=== PATIENT | male | born 1960 | race African-American/Black ===

== ENCOUNTER 2023-05-24 15:04 | Inpatient (IN) | payer OTHER ==
[2023-05-24 15:28] LABS: Glucose,Whole Blood 105 mg/dL (70-110)
--- NOTE | 2023-05-24 15:30 | ED ---
General Adult HPI - General Chief complaint: Altered Mental Status Stated complaint: AMS Time Seen by Provider: 05/24/23 15:11 Source: patient, RN notes reviewed, old records reviewed - History of Present Illness Initial comments: Patient is a 62-year-old male who presents from [facility] for possible strokelike symptoms. Apparently was found sitting on the heater. Staring off into space. May have had some right-sided facial droop as well as right-sided weakness. All that seems to have resolved at this time. Patient does appear slightly confused but is alert and oriented x 4. Is moving all 4 extremities. Denies any drug or alcohol use. Denies any other acute complaints. Presents for further evaluation. Denies any trauma.Denies being on blood thinners. Denies any head trauma. - Related Data Home Medications Medication Instructions Recorded Confirmed Acetaminophen Tab [Tylenol] 650 mg PO Q4H PRN 05/24/23 05/24/23 Atorvastatin [Lipitor] 80 mg PO HS 05/24/23 05/24/23 Calcium Phos/D3/Magnesium/Zinc 1 tab PO TID PRN 05/24/23 05/24/23 [Rubraio-Qdp-Pqup-Vitamin D3] Cetirizine HCl 10 mg PO DAILY 05/24/23 05/24/23 Clopidogrel [Plavix] 75 mg PO DAILY 05/24/23 05/24/23 Ergocalciferol (Vitamin D2) 1,250 mcg PO Q30D 05/24/23 05/24/23 [Drisdol (50,000 Iu)] Hyoscyamine Sulfate [Levsin] 0.125 mg PO QID PRN 05/24/23 05/24/23 Isosorbide Mononitrate ER [Imdur] 30 mg PO DAILY 05/24/23 05/24/23 Loperamide HCl [Imodium A-D] 4 mg PO QID PRN 05/24/23 05/24/23 Losartan [Cozaar] 25 mg PO DAILY 05/24/23 05/24/23 Mag Hydrox/Aluminum Hyd/Simeth 30 ml PO Q4H PRN 05/24/23 05/24/23 [Mylanta Maximum Strength Liq] Multivitamins, Thera [Multivitamin 1 tab PO DAILY 05/24/23 05/24/23 (formulary)] Naproxen [EC-Naprosyn] 500 mg PO BID PRN 05/24/23 05/24/23 Nitroglycerin Sl Tabs [Nitrostat] 0.4 mg SUBLINGUAL Q5M PRN 05/24/23 05/24/23 SUMAtriptan succinate [Imitrex] 50 mg PO BID PRN 05/24/23 05/24/23 Thiamine [Vitamin B-1] 100 mg PO DAILY 05/24/23 05/24/23 Tigan 200mg/2ml Injection 200 mg IM Q6H PRN 05/24/23 05/24/23 buprenorphine HCL [Subutex] 4 mg SL DIRECTED 05/24/23 05/24/23 carvediloL [Coreg] 6.25 mg PO BID 05/24/23 05/24/23 cilostazoL [Pletal] 100 mg PO BID 05/24/23 05/24/23 cloNIDine HCL [Catapres] 0.1 - 0.3 mg PO DIRECTED PRN 05/24/23 05/24/23 cloNIDine HCL [Catapres] 0.1 mg PO Q4H PRN 05/24/23 05/24/23 ondansetron HCL [Zofran] 8 mg PO Q6H PRN 05/24/23 05/24/23 traZODone HCL [Desyrel] 50 - 150 mg PO HS PRN 05/24/23 05/24/23 Allergies Allergy/AdvReac Type Severity Reaction Status Date / Time No Known Allergies Allergy Verified 05/24/23 16:08 Review of Systems ROS Statement: Those systems with pertinent positive or pertinent negative responses have been documented in the HPI. Review of Systems: CONST: Denies fever EYES: Denies blurry vision ENT: Denies nasal congestion C/V: Denies Chest pain RESP: Denies shortness of breath GI: Denies abdominal pain : Denies dysuria SKIN: Denies rash. MSK: Endorses chronic back pain NEURO: Denies headache ROS Other: All systems not noted in ROS Statement are negative. General Exam - General Exam Comments Initial Comments: General: Appears in no acute distress. HEAD: Normal with no signs of head trauma. Negative Sexton sign, negative raccoon eyes. EYES: PERRLA, EOMI, conjunctiva normal, no discharge. Pupils are 2 mm and equal bilaterally. ENT: Hearing grossly intact, normal oropharynx. RESPIRATORY: Clear breath sounds bilaterally. No wheezes, rales, or rhonchi. C/V: Regular rate and rhythm. S1 and S2 auscultated, no edema, peripheral pulses 2+ and intact throughout ABD: Abd is soft, nontender, nondistended EXT: Normal range of motion, no obvious deformity. Pelvis is stable. Midline cervical spine tenderness to palpation. SKIN: No rashes or lesions observed on exposed skin. NEURO: Alert and oriented x 3-4. Cranial nerves II through XII are intact. No focal deficits. Moving all 4 extremities. Seems to be slow to sometimes respond but is redirectable. NIH right now is 0. GCS of 15. Course Vital Signs 05/24/23 05/24/23 05/24/23 15:35 15:43 17:18 Temperature 98.8 F 98.1 F Pulse Rate 77 69 Respiratory 16 12 Rate Blood Pressure 166/101 159/100 O2 Sat by Pulse 97 97 Oximetry 05/24/23 05/24/23 05/24/23 18:20 19:22 20:00 Temperature 99.3 F Pulse Rate 75 68 65 Respiratory 20 16 20 Rate Blood Pressure 139/95 147/86 147/86 O2 Sat by Pulse 97 99 98 Oximetry 05/24/23 21:00 Temperature Pulse Rate 69 Respiratory 18 Rate Blood Pressure 156/93 O2 Sat by Pulse 98 Oximetry Medical Decision Making - Medical Decision Making Was pt. sent in by a medical professional or institution (, PA, FAMILY SERVICES WORKER, urgent care, hospital, or shelter...) When possible be specific @ -No Did you speak to anyone other than the patient for history (EMS, parent, family, police, friend...)? What history was obtained from this source @ -No Did you review nursing and triage notes (agree or disagree)? Why? @ -I reviewed and agree with nursing and triage notes Were old charts reviewed (outside hosp., previous admission, EMS record, old EKG, old radiological studies, urgent care reports/EKG's, shelter records)? Report findings @ -No old charts were reviewed Differential Diagnosis (chest pain, altered mental status, abdominal pain women, abdominal pain men, vaginal bleeding, weakness, fever, dyspnea, syncope, headache, dizziness, GI bleed, back pain, seizure, CVA, palpatations, mental health, musculoskeletal)? @ -Differential Altered Mental Status: Hypoglycemia, DKA, hypercapnia, ETOH, overdose, CO poisoning, trauma, myxedema coma, HTN encephalopathy, infection, encephalitis, psychosis, intercranial hemorrhage, hepatic encephalopathy, meningitis, CVA, this is not meant to be an all-inclusive list EKG interpreted by me (3pts min.). @ -As above X-rays interpreted by me (1pt min.). @ -Chest x-ray reveals no obvious acute cardiopulmonary process. CT interpreted by me (1pt min.). @ -CT C-spine shows degenerative changes but no obvious injury. CT brain shows findings concerning per radiology for a possible developing lacunar infarct in the left basal ganglia. CT angiogram of the head and neck reveals no evidence of acute intracranial process or large vessel occlusion. U/S interpreted by me (1pt. min.). @ -None done What testing was considered but not performed or refused? (CT, X-rays, U/S, labs)? Why? @ -None What meds were considered but not given or refused? Why? @ -None Did you discuss the management of the patient with other professionals (professionals i.e. , PA, FAMILY SERVICES WORKER, lab, RT, psych nurse, high school social science teacher, breast splitter, teacher, traffic officer, caser in)? Give summary @ -Discussed with neuro interventionalists crit care Dr. Echevarria who reviewed CT imaging. Was in agreement with obtaining CT angiogram. It was in agreement wit h otherwise medical management. Agreed no thrombolytics at this time considering the patient has no focal deficits and NIH is technically 0 with complaints of generalized weakness. Would like the patient admitted for stroke workup with neurology. I discussed with on-call neurologist Dr. Archibald who was in agreement the plan. I discussed with city call Dr. Dong of [facility] [place] who accepted the admission. Was smoking cessation discussed for >3mins.? @ -No Was critical care preformed (if so, how long)? @ -Yes, 38 minutes Were there social determinants of health that impacted care today? How? (Marylu elessness, low income, unemployed, alcoholism, drug addiction, transportation, low edu. Level, literacy, decrease access to med. care, half-way, rehab)? @ -No Was there de-escalation of care discussed even if they declined (Discuss DNR or withdrawal of care, Hospice)? DNR status @ -No What co-morbidities impacted this encounter? (DM, HTN, Smoking, COPD, CAD, Cancer, CVA, ARF, Chemo, Hep., AIDS, mental health diagnosis, sleep apnea, morbid obesity)? @ -None Was patient admitted / discharged? Hospital course, mention meds given and route, prescriptions, significant lab abnormalities, going to OR and other pertinent info. @ -Patient was brought in as a possible code stroke however GCS is currently 14-15 and NIH is 0 currently. Apparently had more right-sided deficits however he is moving all 4 extremities just having a hard time following directions. We will obtain CT brain as well as altered mental status workup. Patient was in agreement this plan. Vital signs are within acceptable limits. EKG shows T wave inversions in V3 V4, V5 and slightly in V6 as well.Chest x-ray revealed no obvious acute process. Patient's laboratory studies are also unremarkable except for positive cocaine. CT brain revealed possible developing lacunar infarct. I ordered a CT angiogram. I reevaluate the patient and patient still has bilateral weakness with no focal deficits at this time. Confusion does appear to be improved. Is asking for pain medications for chronic back pain and neck pain. Seems to have bilateral upper extremity weakness, no focal weakness. I discussed results with him. We will obtain CT angiogram. As NIH is still technically 0 with no focal deficits, patient remains not a stroke activation at this time. He is not a candidate for thrombo lytics due to the very mild symptoms and risks for outweigh the benefits. I did discuss this with the on-call neuro crit assisted living care manager Dr. Echevarria. He reviewed CT brain and was in agreement the plan for no thrombolytics at this time based on the patient's presentation and findings. Did recommend CT angiogram. Did recommend follow-up with neurology. I will notify him if CT angiogram reveals any obvious large vessel occlusion. Otherwise he was in agreement with plan for medical management and evaluation by neurology here. CT angiogram revealed no obvious findings of large vessel occlusion. I discussed this with the patient. Exam remains unchanged at this time. He will be given analgesia medications at this time. He will be given aspirin. He will be admitted for neuro evaluation. I did speak with Dr. Archibald about the patient as I was discussing a another patient with him. He was in agreement the plan. I also spoke with the on-call [facility] [place] physician group, Dr. Dong who accepted the admission. Undiagnosed new problem with uncertain prognosis? @ -No Drug Therapy requiring intensive monitoring for toxicity (Heparin, Nitro, Insulin, Cardizem)? @ -No Were any procedures done? @ -No Diagnosis/symptom? @ -Rule out CVA, confusion, weakness Acute, or Chronic, or Acute on Chronic? @ -Acute Uncomplicated (without systemic symptoms) or Complicated (systemic symptoms)? @ -Complicated Side effects of treatment? @ -None Exacerbation, Progression, or Severe Exacerbation] @ -No Poses a threat to life or bodily function? @ -Yes - Lab Data Result diagrams: 05/24/23 15:29 05/24/23 15:29 Lab Results 05/24/23 05/24/23 05/24/23 Range/Units 15:11 15:13 15:26 WBC (3.8-10.6) k/uL RBC (4.30-5.90) m/uL Hgb (13.0-17.5) gm/dL Hct (39.0-53.0) % MCV (80.0-100.0) fL MCH (25.0-35.0) pg MCHC (31.0-37.0) g/dL RDW (11.5-15.5) % Plt Count (150-450) k/uL MPV Neutrophils % % Lymphocytes % % Monocytes % % Eosinophils % % Basophils % % Neutrophils # (1.3-7.7) k/uL Lymphocytes # (1.0-4.8) k/uL Monocytes # (0-1.0) k/uL Eosinophils # (0-0.7) k/uL Basophils # (0-0.2) k/uL PT (10.0-12.5) sec INR (<1.2) APTT (22.0-30.0) sec Sodium (137-145) mmol/L Potassium (3.5-5.1) mmol/L Chloride (98-107) mmol/L Carbon Dioxide (22-30) mmol/L Anion Gap mmol/L BUN (9-20) mg/dL Creatinine (0.66-1.25) mg/dL Est GFR (CKD-EPI)AfAm (>60 ml/min/1.73 sqM) Est GFR (CKD-EPI)NonAf (>60 ml/min/1.73 sqM) Glucose (74-99) mg/dL POC Glucose (mg/dL) 105 (70-110) mg/dL POC Glu Cork Grinder ID Lindsey Mcnulty Plasma Lactic Acid Alberto (0.7-2.0) mmol/L Calcium (8.4-10.2) mg/dL Total Bilirubin (0.2-1.3) mg/dL AST (17-59) U/L ALT (4-49) U/L Alkaline Phosphatase (38-126) U/L Ammonia (<30) umol/L Troponin I (0.000-0.034) ng/mL Total Protein (6.3-8.2) g/dL Albumin (3.5-5.0) g/dL Urine Color Colorless Urine Appearance Clear (Clear) Urine pH 6.0 (5.0-8.0) Ur Specific [place] 1.013 (1.001-1.035) Urine Protein Negative (Negative) Urine Glucose (UA) Negative (Negative) Urine Ketones Negative (Negative) Urine Blood Negative (Negative) Urine Nitrite Negative (Negative) Urine Bilirubin Negative (Negative) Urine Urobilinogen <2.0 (<2.0) mg/dL Ur Leukocyte Esterase Negative (Negative) Urine Opiates Screen Not Detected (NotDetected) Ur Oxycodone Screen Not Detected (NotDetected) Urine Methadone Screen Not Detected (NotDetected) Ur Barbiturates Screen Not Detected (NotDetected) U Tricyclic Antidepress Not Detected (NotDetected) Ur Phencyclidine Scrn Not Detected (NotDetected) Ur Amphetamines Screen Not Detected (NotDetected) U Methamphetamines Scrn Not Detected (NotDetected) U Benzodiazepines Scrn Not Detected (NotDetected) Urine Cocaine Screen Detected H (NotDetected) U Marijuana (THC) Screen Not Detected (NotDetected) Serum Alcohol mg/dL Influenza Type A (PCR) (Not Detectd) Influenza Type B (PCR) (Not Detectd) RSV (PCR) (Not Detectd) SARS-CoV-2 (PCR) (Not Detectd) 05/24/23 05/24/23 05/24/23 Range/Units 15:29 15:29 15:29 WBC 9.0 (3.8-10.6) k/uL RBC 5.29 (4.30-5.90) m/uL Hgb 14.4 (13.0-17.5) gm/dL Hct 43.8 (39.0-53.0) % MCV 82.9 (80.0-100.0) fL MCH 27.3 (25.0-35.0) pg MCHC 32.9 (31.0-37.0) g/dL RDW 14.0 (11.5-15.5) % Plt Count 227 (150-450) k/uL MPV 10.0 Neutrophils % 67 % Lymphocytes % 25 % Monocytes % 5 % Eosinophils % 1 % Basophils % 0 % Neutrophils # 6.1 (1.3-7.7) k/uL Lymphocytes # 2.2 (1.0-4.8) k/uL Monocytes # 0.5 (0-1.0) k/uL Eosinophils # 0.1 (0-0.7) k/uL Basophils # 0.0 (0-0.2) k/uL PT 11.7 (10.0-12.5) sec INR 1.1 (<1.2) APTT 20.4 L (22.0-30.0) sec Sodium 136 L (137-145) mmol/L Potassium 4.7 (3.5-5.1) mmol/L Chloride 106 (98-107) mmol/L Carbon Dioxide 21 L (22-30) mmol/L Anion Gap 9 mmol/L BUN 16 (9-20) mg/dL Creatinine 0.63 L (0.66-1.25) mg/dL Est GFR (CKD-EPI)AfAm >90 (>60 ml/min/1.73 sqM) Est GFR (CKD-EPI)NonAf >90 (>60 ml/min/1.73 sqM) Glucose 113 H (74-99) mg/dL POC Glucose (mg/dL) (70-110) mg/dL POC Glu Cork Grinder ID Plasma Lactic Acid Alberto (0.7-2.0) mmol/L Calcium 9.2 (8.4-10.2) mg/dL Total Bilirubin 1.1 (0.2-1.3) mg/dL AST 45 (17-59) U/L ALT 20 (4-49) U/L Alkaline Phosphatase 61 (38-126) U/L Ammonia (<30) umol/L Troponin I (0.000-0.034) ng/mL Total Protein 7.7 (6.3-8.2) g/dL Albumin 4.1 (3.5-5.0) g/dL Urine Color Urine Appearance (Clear) Urine pH (5.0-8.0) Ur Specific [place] (1.001-1.035) Urine Protein (Negative) Urine Glucose (UA) (Negative) Urine Ketones (Negative) Urine Blood (Negative) Urine Nitrite (Negative) Urine Bilirubin (Negative) Urine Urobilinogen (<2.0) mg/dL Ur Leukocyte Esterase (Negative) Urine Opiates Screen (NotDetected) Ur Oxycodone Screen (NotDetected) Urine Methadone Screen (NotDetected) Ur Barbiturates Screen (NotDetected) U Tricyclic Antidepress (NotDetected) Ur Phencyclidine Scrn (NotDetected) Ur Amphetamines Screen (NotDetected) U Methamphetamines Scrn (NotDetected) U Benzodiazepines Scrn (NotDetected) Urine Cocaine Screen (NotDetected) U Marijuana (THC) Screen (NotDetected) Serum Alcohol <10 mg/dL Influenza Type A (PCR) (Not Detectd) Influenza Type B (PCR) (Not Detectd) RSV (PCR) (Not Detectd) SARS-CoV-2 (PCR) (Not Detectd) 05/24/23 05/24/23 05/24/23 Range/Units 15:29 15:29 15:51 WBC (3.8-10.6) k/uL RBC (4.30-5.90) m/uL Hgb (13.0-17.5) gm/dL Hct (39.0-53.0) % MCV (80.0-100.0) fL MCH (25.0-35.0) pg MCHC (31.0-37.0) g/dL RDW (11.5-15.5) % Plt Count (150-450) k/uL MPV Neutrophils % % Lymphocytes % % Monocytes % % Eosinophils % % Basophils % % Neutrophils # (1.3-7.7) k/uL Lymphocytes # (1.0-4.8) k/uL Monocytes # (0-1.0) k/uL Eosinophils # (0-0.7) k/uL Basophils # (0-0.2) k/uL PT (10.0-12.5) sec INR (<1.2) APTT (22.0-30.0) sec Sodium (137-145) mmol/L Potassium (3.5-5.1) mmol/L Chloride (98-107) mmol/L Carbon Dioxide (22-30) mmol/L Anion Gap mmol/L BUN (9-20) mg/dL Creatinine (0.66-1.25) mg/dL Est GFR (CKD-EPI)AfAm (>60 ml/min/1.73 sqM) Est GFR (CKD-EPI)NonAf (>60 ml/min/1.73 sqM) Glucose (74-99) mg/dL POC Glucose (mg/dL) (70-110) mg/dL POC Glu Cork Grinder ID Plasma Lactic Acid Alberto 1.5 (0.7-2.0) mmol/L Calcium (8.4-10.2) mg/dL Total Bilirubin (0.2-1.3) mg/dL AST (17-59) U/L ALT (4-49) U/L Alkaline Phosphatase (38-126) U/L Ammonia 28 (<30) umol/L Troponin I <0.012 (0.000-0.034) ng/mL Total Protein (6.3-8.2) g/dL Albumin (3.5-5.0) g/dL Urine Color Urine Appearance (Clear) Urine pH (5.0-8.0) Ur Specific [place] (1.001-1.035) Urine Protein (Negative) Urine Glucose (UA) (Negative) Urine Ketones (Negative) Urine Blood (Negative) Urine Nitrite (Negative) Urine Bilirubin (Negative) Urine Urobilinogen (<2.0) mg/dL Ur Leukocyte Esterase (Negative) Urine Opiates Screen (NotDetected) Ur Oxycodone Screen (NotDetected) Urine Methadone Screen (NotDetected) Ur Barbiturates Screen (NotDetected) U Tricyclic Antidepress (NotDetected) Ur Phencyclidine Scrn (NotDetected) Ur Amphetamines Screen (NotDetected) U Methamphetamines Scrn (NotDetected) U Benzodiazepines Scrn (NotDetected) Urine Cocaine Screen (NotDetected) U Marijuana (THC) Screen (NotDetected) Serum Alcohol mg/dL Influenza Type A (PCR) Not Detected (Not Detectd) Influenza Type B (PCR) Not Detected (Not Detectd) RSV (PCR) Not Detected (Not Detectd) SARS-CoV-2 (PCR) Not Detected (Not Detectd) - EKG Data -: EKG Interpreted by Me EKG Comments: 12-lead Electrocardiogram Interpretation Note EKG was reviewed and interpreted by myself. 12-lead ECG performed at 1514 is interpreted by me as revealing normal sinus rhythm at a rate of 80 beats per minute. Left axis deviation. CA interval is 128 ms, QRS duration is 99 ms, QTc is 427 ms. T wave inversion seen in V4 and V5 with PVCs.. R wave progression across the precordium was satisfactory. . No prior EKG for comparison. Disposition Clinical Impression: AMS (altered mental status), Upper extremity weakness, Weakness, Confusion Narrative: rule out cva Disposition: ADMITTED IP TO THIS HOSP Condition: Stable Time of Disposition: 18:45
[2023-05-24] MEDS: NALOXONE 0.4 MG/ML 1 ML VIAL IVP STA (15:43)
[2023-05-24] MEDS: SODIUM CHLORIDE 0.9% 1,000 ML IV ONE (15:44)
[2023-05-24 15:49] LABS: Basophils % (A) 0 %; Eosinophils # (A) 0.1 k/uL (0-0.7); Eosinophils % (A) 1 %; HCT 43.8 % (39.0-53.0); HGB 14.4 gm/dL (13.0-17.5); Lymphocytes # (A) 2.2 k/uL (1.0-4.8); Lymphocytes % (A) 25 %; MCH 27.3 pg (25.0-35.0); MCHC 32.9 g/dL (31.0-37.0); MCV 82.9 fL (80.0-100.0); Monocytes # (A) 0.5 k/uL (0-1.0); Monocytes % (A) 5 %; Neutrophils # (A) 6.1 k/uL (1.3-7.7); Neutrophils % (A) 67 %; Platelet Count 227 k/uL (150-450); RBC 5.29 m/uL (4.30-5.90)
[2023-05-24 16:02] LABS: Lactic Acid, Venous 1.5 mmol/L (0.7-2.0)
[2023-05-24 16:04] LABS: ALT 20 U/L (4-49); African American GFR (CKD) >90 (>60 ml/min/1.73 sqM); Alcohol <10 mg/dL; Blood Urea Nitrogen 16 mg/dL (9-20); Non-African American GFR(CKD) >90 (>60 ml/min/1.73 sqM)
[2023-05-24 16:12] LABS: INR 1.1 (<1.2); Partial Thromboplastin Time 20.4 sec (22.0-30.0); Prothrombin Time 11.7 sec (10.0-12.5)
[2023-05-24 16:19] LABS: Anion Gap 9 mmol/L; Calcium 9.2 mg/dL (8.4-10.2); Carbon Dioxide 21 mmol/L (22-30); Chloride 106 mmol/L (98-107); Glucose 113 mg/dL (74-99); Sodium 136 mmol/L (137-145)
[2023-05-24 16:20] LABS: AST 45 U/L (17-59); Albumin 4.1 g/dL (3.5-5.0); Alkaline Phosphatase 61 U/L (38-126); Potassium 4.7 mmol/L (3.5-5.1); Total Bilirubin 1.1 mg/dL (0.2-1.3); Total Protein 7.7 g/dL (6.3-8.2)
--- NOTE | 2023-05-24 16:41 | CT ---
EXAMINATION TYPE: CT brain ady macias DATE OF EXAM: 05/24/2023 COMPARISON: None HISTORY: AMS CT DLP: 1353.3 mGycm Automated exposure control for dose reduction was used. TECHNIQUE: CT scan of the head and cervical spine are performed without contrast. FINDINGS Head CT: The ventricles, basal cisterns and sulci of the convexities within normal limits and there is no mass effect or shift of midline structures. There is no acute intra or extra-axial hemorrhage. There is a subtle ill-defined decreased density in the left basal ganglia which could represent an ac lucho lacunar infarct. MRI of the brain would be useful for further evaluation. The posterior fossa is grossly normal. Intraorbital contents appear normal and symmetric. There is a large mucus retention cysts or polyp within the right maxillary sinus. There are mild scat tered chronic inflammatory changes in the ethmoid air cells. Sphenoid sinus and frontal sinus and mas toid air cells are well aerated. The calvarium is intact. CT cervical spine. Craniovertebral junction relationships and prevertebral soft tissues are normal. The cervical vertebr al segments are normal in height and there is no evidence of fracture. There is a slight anterolisthe sis of C3 on C4. There is moderate degenerative disc disease at C3-C4, C4-5, C5-6, C6-7 and C7/T1 levels where there i s moderate disc space narrowing and spondylosis. The facet joints are intact. There is moderate degen erative change of the uncovertebral joints in the mid and lower cervical spine. There is no bony encr oachment of the cervical canal. There is bony neural foraminal stenosis at multiple levels as follows ; moderate at C3-4 bilaterally, moderate at C4-5 on the left, moderate at C5-6 bilaterally and mild a t C6-7 on the left. IMPRESSION: 1. No acute bleed or mass effect. 2. Possible developing lacunar infarct in left basal ganglia. MRI would be useful for further evaluat ion. 3. Marked chronic sinusitis of the right maxillary sinus. 4. No cervical spine trauma. 5. Moderate degenerative changes in mid-lower cervical spine as described above.
--- NOTE | 2023-05-24 16:58 | XR ---
EXAMINATION TYPE: XR chest 2V DATE OF EXAM: 05/24/2023 4:51 PM CLINICAL INDICATION:Male, 62 years old with history of altered mental status; [facility] COMPARISON: None TECHNIQUE: XR chest 2V Frontal and lateral views of the chest. FINDINGS: Lungs/Pleura: There is no evidence of pleural effusion, focal consolidation, or pneumothorax. Pulmonary vascularity: Unremarkable. Heart/mediastinum: Cardiomediastinal silhouette is unremarkable. Musculoskeletal: No acute osseous pathology. IMPRESSION: No acute cardiopulmonary disease/process.
[2023-05-24 17:23] LABS: Appearance,Urine Clear (Clear); Bilirubin,Urine Negative (Negative); Blood,Urine Negative (Negative); Color,Urine Colorless; Glucose,Urine (UA) Negative (Negative); Ketones,Urine Negative (Negative); Leukocyte Esterase,Urine Negative (Negative); Nitrite,Urine Negative (Negative); Protein,Urine Negative (Negative); Specific Gravity,Urine 1.013 (1.001-1.035); Urobilinogen,Urine <2.0 mg/dL (<2.0)
[2023-05-24 17:32] LABS: Amphetamine Screen,Urine Not Detected (NotDetected); Barbiturate Screen,Urine Not Detected (NotDetected); Benzodiazepines Screen,Urine Not Detected (NotDetected); Cocaine Screen,Urine Detected (NotDetected); Methadone Screen, Urine Not Detected (NotDetected); Opiate Screen,Urine Not Detected (NotDetected); Oxycodone Screen, Urine Not Detected (NotDetected); Phencyclidine Screen,Urine Not Detected (NotDetected); Tricyclic Antidepressant,Urine Not Detected (NotDetected); Urn Cannabinoid Scrn Not Detected (NotDetected)
--- NOTE | 2023-05-24 18:25 | CT ---
EXAMINATION TYPE: CT angio head neck CT DLP: 478.4 mGycm, Automated exposure control for dose reduction was used. DATE OF EXAM: 05/24/2023 5:55 PM COMPARISON: 05/24/2023. CLINICAL INDICATION:Male, 62 years old with history of ams; [facility], AMS TECHNIQUE: Axially acquired helical CT angiogram of the head and neck was obtained with contrast. Axi al images are supplemented with 3D reconstructions and MIP images which were post-processed at an in dependent workstation. NASCET criteria used. Contrast used:65ml mL of Isovue 370 with IV Contrast, Oral contrast used: None. FINDINGS: CTA HEAD: No evidence of acute intracranial hemorrhage, mass effect, or midline shift. The ventricles, sulci, a nd cisterns are unremarkable. The visualized portions of the internal carotid arteries, middle cerebral arteries, anterior cerebral arteries, and posterior cerebral arteries are patent. The basilar and vertebral arteries are patent. Dominant right and diminutive left vertebral arteries. Paranasal sinus disease with retention cyst in the right maxillary sinus. CTA NECK: Right Carotid System: The common carotid artery and external carotid artery are patent. The carotid bifurcation demonstrate s no evidence of hemodynamically significant stenosis. The remaining portions of the internal carotid artery demonstrate normal size without significant narrowing. Left Carotid System: The common carotid artery and external carotid artery are patent. The carotid bifurcation demonstrate s no evidence of hemodynamically significant stenosis. The remaining portions of the internal carotid artery demonstrate normal size without significant narrowing. Vertebral arteries are patent without evidence hemodynamically significant stenosis. Dominant right a nd diminutive left vertebral artery noted. There is a 4-vessel aortic arch. The origins of the great vessels are patent. No evidence of hemodyna mically significant stenosis. Upper thorax: Scattered tiny thin-walled cystic changes are seen throughout the lungs. Mild parasepta l emphysema changes. IMPRESSION: 1. No evidence of dissection of the cervical internal carotid arteries or vertebral arteries or any e vidence of significant stenosis at the carotid bifurcations. 2. No evidence of intracranial high-grade stenosis or intracranial aneurysm.
[2023-05-24] MEDS: ACETAMINOPHEN TAB 500 MG TAB PO STA (18:40)
[2023-05-24] MEDS: ASPIRIN 325 MG TAB PO STA (18:41)
[2023-05-24] MEDS: MORPHINE SULFATE 4 MG/ML SYRINGE IVP STA (18:42)
[2023-05-24] MEDS ORDERED: LOPERAMIDE 2 MG CAP PO PRN (22:04)
[2023-05-25] MEDS: ACETAMINOPHEN TAB 325 MG TAB PO PRN (00:12)
--- NOTE | 2023-05-25 02:22 | P.HPIM ---
History of Present Illness H&P Date: 05/24/23 Chief Complaint: Altered mental status 62-year-old male with history of polysubstance abuse hypertension Patient coming in for evaluation from [place] where he is staying for rehab due to polysubstance abuse including cocaine fentanyl and heroin. Patient himself currently reporting flaring up of his chronic low back pain otherwise has no other complaints. He is a very poor historian seems disengaged with the interviewer. [place] reported that he was found sitting on a heater staring off into space they grew concerned regarding his mental status one of the staff members thought they noticed right facial droop and right-sided weakness for which they notified EMS and was brought into the hospital for altered mental status and possible stroke Patient himself unable to provide any meaningful history at this time Patient does admit to polysubstance abuse cocaine and heroin snorting. Otherwise denies any chest pain or trouble breathing denies any nausea vomiting fevers or chills Patient denies any history of stroke or heart attacks Patient has been at [place] rehab for about 5 days since Saturday last time he used cocaine and heroin was before going to rehab review of systems Pertinent positives as noted in HPI. All other systems were reviewed and are negative on exam Constitutional: No acute distress, disengaged Eyes: Anicteric sclerae, moist conjunctiva, Pupils equal round reactive to light ENMT: NC/AT Oropharynx clear, no erythema, or exudates Neck: Supple, no masses, or JVD No carotid bruits No thyromegaly Lungs: Clear to auscultation Clear to percussion Normal respiratory effort, no accessory muscle use Cardiovascular: Heart regular in rate and rhythm, No murmurs, gallops, or rubs No peripheral edema Abdominal: Soft Nontender, no guarding, rebound or rigidity Abdomen moving with respiration Normoactive bowel sounds Extremities: No digital cyanosis No clubbing Pedal pulses intact and symmetrical Radial pulses intact and symmetrical No calf tenderness Psychiatric: Alert and oriented to person, place and time Neuro patient failed to participate in neuroexam he shows very poor effort very inconsistent exam compared to his behavior earlier during the interview when asked to do facial expressions or move his extremities he would either stare me in the blank or moves very slow to perform the action requested which seems to be inconsistent with earlier during the interview and history taking where he was moving around the bed freely and purposefully Past Medical History Past Medical History: Unable to Obtain History of Any Multi-Drug Resistant Organisms: None Reported Past Surgical History: Unable to Obtain Past Psychological History: No Psychological Hx Reported Smoking Status: Current some day smoker Past Alcohol Use History: None Reported Past Drug Use History: Opiates Medications and Allergies Home Medications Medication Instructions Recorded Confirmed Type Acetaminophen Tab [Tylenol] 650 mg PO Q4H PRN 05/24/23 05/24/23 History Atorvastatin [Lipitor] 80 mg PO HS 05/24/23 05/24/23 History Calcium Phos/D3/Magnesium/Zinc 1 tab PO TID PRN 05/24/23 05/24/23 History [Vyptzaa-Eog-Hclm-Vitamin D3] Cetirizine HCl 10 mg PO DAILY 05/24/23 05/24/23 History Clopidogrel [Plavix] 75 mg PO DAILY 05/24/23 05/24/23 History Ergocalciferol (Vitamin D2) 1,250 mcg PO Q30D 05/24/23 05/24/23 History [Drisdol (50,000 Iu)] Hyoscyamine Sulfate [Levsin] 0.125 mg PO QID PRN 05/24/23 05/24/23 History Isosorbide Mononitrate ER [Imdur] 30 mg PO DAILY 05/24/23 05/24/23 History Loperamide HCl [Imodium A-D] 4 mg PO QID PRN 05/24/23 05/24/23 History Losartan [Cozaar] 25 mg PO DAILY 05/24/23 05/24/23 History Mag Hydrox/Aluminum Hyd/Simeth 30 ml PO Q4H PRN 05/24/23 05/24/23 History [Mylanta Maximum Strength Liq] Multivitamins, Thera [Multivitamin 1 tab PO DAILY 05/24/23 05/24/23 History (formulary)] Naproxen [EC-Naprosyn] 500 mg PO BID PRN 05/24/23 05/24/23 History Nitroglycerin Sl Tabs [Nitrostat] 0.4 mg SUBLINGUAL Q5M PRN 05/24/23 05/24/23 Hi story SUMAtriptan succinate [Imitrex] 50 mg PO BID PRN 05/24/23 05/24/23 History Thiamine [Vitamin B-1] 100 mg PO DAILY 05/24/23 05/24/23 History Tigan 200mg/2ml Injection 200 mg IM Q6H PRN 05/24/23 05/24/23 History buprenorphine HCL [Subutex] 4 mg SL DIRECTED 05/24/23 05/24/23 History carvediloL [Coreg] 6.25 mg PO BID 05/24/23 05/24/23 History cilostazoL [Pletal] 100 mg PO BID 05/24/23 05/24/23 History cloNIDine HCL [Catapres] 0.1 - 0.3 mg PO DIRECTED PRN 05/24/23 05/24/23 H istory cloNIDine HCL [Catapres] 0.1 mg PO Q4H PRN 05/24/23 05/24/23 History ondansetron HCL [Zofran] 8 mg PO Q6H PRN 05/24/23 05/24/23 History traZODone HCL [Desyrel] 50 - 150 mg PO HS PRN 05/24/23 05/24/23 History Allergies Allergy/AdvReac Type Severity Reaction Status Date / Time No Known Allergies Allergy Verified 05/24/23 16:08 Physical Exam Vitals: Vital Signs Temp Pulse Resp BP Pulse Ox 05/24/23 21:00 69 18 156/93 98 05/24/23 20:00 65 20 147/86 98 05/24/23 19:22 68 16 147/86 99 05/24/23 18:20 99.3 F 75 20 139/95 97 05/24/23 17:18 98.1 F 69 159/100 97 05/24/23 15:43 12 05/24/23 15:35 98.8 F 77 16 166/101 97 Intake and Output 05/24/23 05/24/23 05/24/23 06:59 14:59 22:59 Other: Weight 121.245 kg Results CBC & Chem 7: 05/24/23 15:29 05/24/23 15:29 Labs: Abnormal Lab Results - Last 24 Hours (Table) 05/24/23 05/24/23 05/24/23 Range/Units 15:11 15:29 15:29 APTT 20.4 L (22.0-30.0) sec Sodium 136 L (137-145) mmol/L Carbon Dioxide 21 L (22-30) mmol/L Creatinine 0.63 L (0.66-1.25) mg/dL Glucose 113 H (74-99) mg/dL Urine Cocaine Screen Detected H (NotDetected) Assessment and Plan Assessment: 62-year-old male with polysubstance abuse hypertension coming in from [facility] for concerns regarding altered mental status I discussed case with ED doctor accepted the admission for confusion and neurologic evaluation to rule out stroke with anticipated length of stay less than 2 midnights Abnormal behavior, episodes of confusion and unresponsiveness Rule out stroke, CT of the brain was questionable for lacunar infarct in the left basal ganglia CT angio of the head and neck showed no evidence of dissection or high-grade stenosis Per neurology on-call recommendations patient was started on aspirin statin and Plavix Neurology consult Check echocardiogram with bubble study Check lipid panel Fall precautions PT OT evaluation Patient to resume blood pressure medications in the morning Check EEG rule out seizure-like activity Due to patient inconsistent behavior and physical exam, I suggest psych evaluation once cleared by neurology Polysubstance abuse monitor patient blood pressure Urine was positive for cocaine, patient admits to last use about 6 days ago DVT prophylaxis heparin subcu 3 times daily GI prophylaxis Protonix 40 mg p.o. daily Full code Blood work overall unremarkable sodium 139 potassium 4.7 BUN 16 creatinine 0.6 Hemoglobin 14.4 white count 9 Rule out cardiac ischemic changes especially in light of cocaine use EKG showed lateral T wave inversion, and trigeminy Chest x-ray negative Continue with aspirin Plavix and statin as above Follow-up echocardiogram results Cardiology consult Troponin negative less than 0.012
[2023-05-25 05:26] LABS: African American GFR (CKD) >90 (>60 ml/min/1.73 sqM); Blood Urea Nitrogen 15 mg/dL (9-20); Calcium 8.8 mg/dL (8.4-10.2); Carbon Dioxide 24 mmol/L (22-30); Glucose 113 mg/dL (74-99); Magnesium 1.9 mg/dL (1.6-2.3); Non-African American GFR(CKD) >90 (>60 ml/min/1.73 sqM)
[2023-05-25 05:38] LABS: Anion Gap 8 mmol/L; Chloride 105 mmol/L (98-107); Potassium 3.5 mmol/L (3.5-5.1); Sodium 137 mmol/L (137-145)
[2023-05-25] MEDS: HEPARIN SODIUM,PORCINE 5,000 UNIT/ML 1 ML VIAL SQ SCH (08:37)
[2023-05-25] MEDS: CLOPIDOGREL 75 MG TAB PO SCH (08:38)
[2023-05-25] MEDS: carvediloL 6.25 MG TAB PO SCH ×2 (08:38→17:19)
[2023-05-25] MEDS: THIAMINE 100 MG TAB PO SCH (08:38)
[2023-05-25] MEDS: ONDANSETRON 4 MG/2 ML VIAL IVP PRN (08:38)
[2023-05-25] MEDS: LOSARTAN 25 MG TAB PO SCH (08:38)
[2023-05-25] MEDS: ISOSORBIDE MONONITRATE ER 30 MG TAB.ER.24H PO SCH (08:38)
[2023-05-25 10:31] LABS: Glucose,Whole Blood 103 mg/dL (70-110)
[2023-05-25 11:25] LABS: Chol/HDL Ratio 3.53 Ratio; LDL Cholesterol,Calculated 117.7 mg/dL (0.0-131.0)
--- NOTE | 2023-05-25 13:52 | CA ---
Transthoracic Echo Report Name: Jean-Claude Mcclelland Age: 62 Gender: M : 1960 Exam Date: 05/25/2023 11:47 Exam Location: [facility] Ht (in): 72 Wt (lb): 267 Ordering Physician: Trevor Perez MD Attending/Referring Phys: [id number], Ana Monument Setter Shira Klein RDCS Procedure CPT: Indications: bubble study , possible stroke Cardiac Hx: Technical Quality: Fair Contrast 1: Total Dose (mL): Contrast 2: Total Dose (mL): MEASUREMENTS (Male / Female) Normal Values 2D ECHO LV Diastolic Diameter PLAX 3.3 cm 4.2 - 5.9 / 3.9 - 5.3 cm LV Systolic Diameter PLAX 1.9 cm IVS Diastolic Thickness 2.1 cm 0.6 - 1.0 / 0.6 - 0.9 cm LVPW Diastolic Thickness 1.7 cm 0.6 - 1.0 / 0.6 - 0.9 cm LV Relative Wall Thickness 1.2 RV Internal Dim ED PLAX 4.5 cm LA Volume 56.2 cm??? 18 - 58 / 22 - 52 cm??? LA Volume Index 22.3 cm???/m??? 16 - 28 cm???/m??? M-MODE Aortic Root Diameter MM 3.1 cm LA Systolic Diameter MM 4.6 cm LA Ao Ratio MM 1.5 AV Cusp Separation MM 2.2 cm DOPPLER AV Peak Velocity 92.4 cm/s AV Peak Gradient 3.4 mmHg AV Mean Velocity 67.0 cm/s AV Mean Gradient 1.9 mmHg AV Velocity Time Integral 19.4 cm LVOT Peak Velocity 71.6 cm/s LVOT Peak Gradient 2.1 mmHg LVOT Velocity Time Integral 15.6 cm MV Area PHT 3.0 cm??? Mitral E Point Velocity 49.0 cm/s Mitral A Point Velocity 59.7 cm/s Mitral E to A Ratio 0.8 MV Deceleration Time 249.9 ms MV E' Velocity 8.4 cm/s Mitral E to MV E' Ratio 5.8 FINDINGS Left Ventricle Severely increased left ventricular wall thickness. Left ventricular cavity size normal. Normal left ventricular systolic function with no obvious regional wall motion abnormalities. Left ventricular ejection fraction is estimated at 50-55 %. Right Ventricle Mild right ventricular dilatation. Right ventricular systolic pressure within normal limits. Right Atrium Normal right atrial size. Negative agitated saline bubble study for right to left shunt. Left Atrium Normal left atrial size. Mitral Valve Structurally normal mitral valve. No mitral stenosis, regurgitation or prolapse. Mitral valve thickened. Aortic Valve Trileaflet aortic valve. No aortic valve stenosis or regurgitation. Tricuspid Valve Structurally normal tricuspid valve. Trace to mild tricuspid regurgitation. Pulmonic Valve Structurally normal pulmonic valve. Pericardium No pericardial effusion. Aorta Normal size aortic root and proximal ascending aorta. CONCLUSIONS Moderate -Severe LVH with preserved systolic function Mildly enlarged right ventricle No [id number] shunting Previewed by: Dr. Mathew Sweeney MD (Electronically Signed) Final Date: 25 May 2023 13:51
--- NOTE | 2023-05-25 13:53 | P.CRDCN ---
History of Present Illness Consult date: 05/25/23 Reason for Consult (text): Frequent PVCs, EKG changes History of present illness: This is Guevara Jasso NP, I'm dictating on behalf of Dr. Sweeney's H&P and A&P The patient was interviewed and examined. HPI: Patient is a pleasant 62-year-old male with a past medical history of polysubstance abuse and hypertension who was presented to the hospital from [place] after the patient was found sitting on a heater staring off into space and not responding to staff members. There was some concern for right facial droop and right-sided weakness, however this was resolved by the time the patient presented to the hospital. There was also reports of altered mental status. Patient does have a significant history of polysubstance abuse in cluding cocaine and heroin. Patient did recently use cocaine and heroin approximately 5 days prior to going into rehab at [place]. On telemetry patient was noted to have frequent PVCs, as well as some changes to his EKG since arrival. Cardiology was consulted to evaluate this. Upon evaluation at this time patient is denying chest pain, shortness of breath, heart palpitations, dizziness. Frequent PVCs as well as EKG changes noted. ROS: [No fever, chills, or rigors] [no cough, phlegm, or expectoration] [no nausea, vomiting, or diarrhea] [no hematuria, dysuria] [no musculoskelatal complaints] [no strokes or seizures] [no skin lesions] EXAMINATION: GENERAL: Well-appearing, well-nourished and in no acute distress. NECK: Supple without JVD or thyromegaly. LUNGS: Breath sounds clear to auscultation bilaterally. Respiration equal and unlabored. No wheezes, rales or rhonchi. HEART: Regular rate and rhythm without murmurs, rubs or gallops. S1 and S2 heard. EXTREMITIES: Normal range of motion, no edema. No clubbing or cyanosis. Peripheral pulses intact and strong. REVIEW OF LABS, ECG & MEDICAL DATA: LABS: White count 9, hemoglobin 14.4, platelets 227, sodium 137, potassium 3.5, BUN 15, creatinine 0.71, calcium 8.8, magnesium 1.9, troponin less than 0.012, triglycerides 114, cholesterol 196, LDL 117.7, HDL 55.5 EKG: EKG dated 05/24/2023 at 1514 demonstrates normal sinus rhythm with frequent PVCs and right bundle branch block; EKG dated 05/25/2023 at 0308 demonstrates n ormal sinus rhythm with frequent PVCs, interval change in ST depression in V2, V3, V4, V5, V6 with associated changes in lead III. IMAGING: CT of the brain and C-spine without contrast dated 05/24/2023 shows no acute bleed or mass effect, possible developing lacunar infarct in left basal ganglia, MRI would be useful for further evaluation, marked chronic sinusitis of the right maxillary sinus, no cervical spine trauma, moderate degenerative changes in the mid lower cervical spine as described above. Chest x-ray dated 05/24/2023 shows no acute cardiopulmonary disease/process. CT angiogram of the head and neck dated 05/24/2023 shows no evidence of dissection of the cervical internal carotid arteries or vertebral arteries or any evidence of significant stenosis at the carotid bifurcations, no evidence of intracranial high-grade stenosis or intracranial aneurysm. VITALS: Temp 98.8, pulse 75, respirations 16, blood pressure 145/85, O2 saturation 98% on room air IMPRESSION: 1. Interval EKG changes noted with ST depression in leads III, and V1 through V6 2. History cocaine and heroin use, currently in rehab 3. Hypertension 4. Probable CVA based on CT scan PLAN: Increase carvedilol to 12.5 mg twice daily. EKG changes are likely secondary to drug withdrawal. Continue to monitor for current progression and will treat as necessary. Recommend neurology consultation for suspected infarct on CT scan of the brain. Further recommendations based on patient's clinical course. Thank you for the consult and allowing us to participate in the care of this patient. Past Medical History Past Medical History: Unable to Obtain History of Any Multi-Drug Resistant Organisms: None Reported Past Surgical History: Unable to Obtain Additional Past Surgical History / Comment(s): heart cath with stents, left leg and foot surgery, "hurt back" Past Anesthesia/Blood Transfusion Reactions: No Reported Reaction Past Psychological History: No Psychological Hx Reported Smoking Status: Current some day smoker Past Alcohol Use History: None Reported Past Drug Use History: Opiates Medications and Allergies Home Medications Medication Instructions Recorded Confirmed Type Acetaminophen Tab [Tylenol] 650 mg PO Q4H PRN 05/24/23 05/24/23 History Atorvastatin [Lipitor] 80 mg PO HS 05/24/23 05/24/23 History Calcium Phos/D3/Magnesium/Zinc 1 tab PO TID PRN 05/24/23 05/24/23 History [Rknnzqo-Ewq-Fwya-Vitamin D3] Cetirizine HCl 10 mg PO DAILY 05/24/23 05/24/23 History Clopidogrel [Plavix] 75 mg PO DAILY 05/24/23 05/24/23 History Ergocalciferol (Vitamin D2) 1,250 mcg PO Q30D 05/24/23 05/24/23 History [Drisdol (50,000 Iu)] Hyoscyamine Sulfate [Levsin] 0.125 mg PO QID PRN 05/24/23 05/24/23 History Isosorbide Mononitrate ER [Imdur] 30 mg PO DAILY 05/24/23 05/24/23 History Loperamide HCl [Imodium A-D] 4 mg PO QID PRN 05/24/23 05/24/23 History Losartan [Cozaar] 25 mg PO DAILY 05/24/23 05/24/23 History Mag Hydrox/Aluminum Hyd/Simeth 30 ml PO Q4H PRN 05/24/23 05/24/23 History [Mylanta Maximum Strength Liq] Multivitamins, Thera [Multivitamin 1 tab PO DAILY 05/24/23 05/24/23 History (formulary)] Naproxen [EC-Naprosyn] 500 mg PO BID PRN 05/24/23 05/24/23 History Nitroglycerin Sl Tabs [Nitrostat] 0.4 mg SUBLINGUAL Q5M PRN 05/24/23 05/24/23 History SUMAtriptan succinate [Imitrex] 50 mg PO BID PRN 05/24/23 05/24/23 History Thiamine [Vitamin B-1] 100 mg PO DAILY 05/24/23 05/24/23 History Tigan 200mg/2ml Injection 200 mg IM Q6H PRN 05/24/23 05/24/23 History buprenorphine HCL [Subutex] 4 mg SL DIRECTED 05/24/23 05/24/23 History carvediloL [Coreg] 6.25 mg PO BID 05/24/23 05/24/23 History cilostazoL [Pletal] 100 mg PO BID 05/24/23 05/24/23 History cloNIDine HCL [Catapres] 0.1 - 0.3 mg PO DIRECTED PRN 05/24/23 05/24/23 History cloNIDine HCL [Catapres] 0.1 mg PO Q4H PRN 05/24/23 05/24/23 History ondansetron HCL [Zofran] 8 mg PO Q6H PRN 05/24/23 05/24/23 History traZODone HCL [Desyrel] 50 - 150 mg PO HS PRN 05/24/23 05/24/23 History Allergies Allergy/AdvReac Type Severity Reaction Status Date / Time No Known Allergies Allergy Verified 05/24/23 16:08 Physical Exam Vitals: Vital Signs Temp Pulse Pulse Pulse Resp BP BP 05/25/23 12:55 05/25/23 08:35 98.8 F 75 16 145/85 05/25/23 04:00 78 18 159/89 05/25/23 02:04 98.7 F 70 16 154/85 05/25/23 02:00 70 05/25/23 01:00 69 18 158/88 05/25/23 00:00 68 14 139/71 05/24/23 23:56 90 16 139/71 05/24/23 23:55 75 16 139/71 05/24/23 21:00 69 18 156/93 05/24/23 20:00 65 20 147/86 05/24/23 19:22 68 16 147/86 05/24/23 18:20 99.3 F 75 20 139/95 05/24/23 17:18 98.1 F 69 159/100 05/24/23 15:43 12 05/24/23 15:35 98.8 F 77 16 166/101 Pulse Ox 05/25/23 12:55 96 05/25/23 08:35 98 05/25/23 04:00 98 05/25/23 02:04 100 05/25/23 02:00 05/25/23 01:00 99 05/25/23 00:00 100 05/24/23 23:56 100 05/24/23 23:55 98 05/24/23 21:00 98 05/24/23 20:00 98 05/24/23 19:22 99 05/24/23 18:20 97 05/24/23 17:18 97 05/24/23 15:43 05/24/23 15:35 97 Intake and Output 05/24/23 05/25/23 05/25/23 22:59 06:59 14:59 Intake Total 480 Balance 480 Intake: Oral 480 Other: Voiding Method Toilet Toilet Urinal Urinal # Voids 0 Weight 121.245 kg 121.245 kg Results 05/24/23 15:29 05/25/23 04:38 Cardiac Enzymes 05/24/23 05/24/23 Range/Units 15:29 15:29 AST 45 (17-59) U/L Troponin I <0.012 (0.000-0.034) ng/mL Coagulation 05/24/23 Range/Units 15:29 PT 11.7 (10.0-12.5) sec APTT 20.4 L (22.0-30.0) sec Lipids 05/24/23 Range/Units 15:29 Triglycerides 114.00 (0.00-149.00) mg/dL Cholesterol 196.00 (0.00-200.00) mg/dL HDL Cholesterol 55.50 (40.00-60.00) mg/dL Cholesterol/HDL Ratio 3.53 Ratio CBC 05/24/23 Range/Units 15:29 WBC 9.0 (3.8-10.6) k/uL RBC 5.29 (4.30-5.90) m/uL Hgb 14.4 (13.0-17.5) gm/dL Hct 43.8 (39.0-53.0) % Plt Count 227 (150-450) k/uL Comprehensive Metabolic Panel 05/24/23 05/25/23 Range/Units 15:29 04:38 Sodium 136 L 137 (137-145) mmol/L Potassium 4.7 3.5 (3.5-5.1) mmol/L Chloride 106 105 (98-107) mmol/L Carbon Dioxide 21 L 24 (22-30) mmol/L BUN 16 15 (9-20) mg/dL Creatinine 0.63 L 0.71 (0.66-1.25) mg/dL Glucose 113 H 113 H (74-99) mg/dL Calcium 9.2 8.8 (8.4-10.2) mg/dL AST 45 (17-59) U/L ALT 20 (4-49) U/L Alkaline Phosphatase 61 (38-126) U/L Total Protein 7.7 (6.3-8.2) g/dL Albumin 4.1 (3.5-5.0) g/dL Current Medications Generic Name Dose Route Start Last Admin Trade Name Freq PRN Reason Stop Dose Admin Acetaminophen 650 mg 05/24/23 22:04 05/25/23 00:12 Acetaminophen Tab 325 Mg Tab PO 650 mg Q4H PRN Administration Pain or Fever > 100.5 Atorvastatin Calcium 80 mg 05/25/23 21:00 Atorvastatin 80 Mg Tab PO HS [facility] Carvedilol 12.5 mg 05/25/23 17:30 Carvedilol 6.25 Mg Tab PO BID-W/MEALS [facility] Clopidogrel Bisulfate 75 mg 05/25/23 09:00 05/25/23 08:38 Clopidogrel 75 Mg Tab PO 75 mg DAILY [facility] Administration Heparin Sodium (Porcine) 5,000 unit 05/25/23 08:00 05/25/23 08:37 Heparin Sodium,Porcine 5,000 Unit/Ml 1 Ml Vial SQ 5,000 unit Q8HR [facility] Administration Isosorbide Mononitrate 30 mg 05/25/23 09:00 05/25/23 08:38 Isosorbide Mononitrate Er 30 Mg Tab.Er.24h PO 30 mg DAILY [facility] Administration Loperamide HCl 4 mg 05/24/23 22:04 Loperamide 2 Mg Cap PO QID PRN Diarrhea Losartan Potassium 25 mg 05/25/23 09:00 05/25/23 08:38 Losartan 25 Mg Tab PO 25 mg DAILY [facility] Administration Ondansetron HCl 4 mg 05/25/23 08:14 05/25/23 08:38 Ondansetron 4 Mg/2 Ml Vial IVP 4 mg Q4HR PRN Administration Nausea And Vomiting Thiamine HCl 100 mg 05/25/23 09:00 05/25/23 08:38 Thiamine 100 Mg Tab PO 100 mg DAILY [facility] Administration Trazodone HCl 50 mg 05/24/23 22:04 Trazodone Hcl 50 Mg Tab PO HS PRN sleep Intake and Output 05/24/23 05/25/23 05/25/23 22:59 06:59 14:59 Intake Total 480 Balance 480 Intake: Oral 480 Other: Voiding Method Toilet Toilet Urinal Urinal # Voids 0 Weight 121.245 kg 121.245 kg 05/24/23 15:29 05/25/23 04:38
--- NOTE | 2023-05-25 14:45 | P.CNNES ---
History of Present Illness Consult date: 05/25/23 Reason for Consult: Dizziness and vertigo History of Present Illness: The patient is a 62-year-old male who was seen in neurologic consultation on May 25, 2023, in collaboration with Sravan Howe, via teleneurology. History is obtained from the patient as well as review of the chart. According to the history and physical and emergency department note, the patient was [facility], at [facility], sitting on a heater. He was thought to perhaps have right-sided facial droop and right sided weakness. He was brought into the emergency room for concern of stroke. CT scan in the emergency department reveals evidence of a left basal ganglia ischemic infarct. I have personally viewed these images and agree with the report. The patient himself reports that he has a slight headache and nausea. He also reports paresthesias and neck pain. The patient reports that yesterday, when this event occurred he said "I was unable to move. I had no energy or strength". The patient also reports that he has not been sleeping since he has been in the rehab facility. The patient denies changes in vision. He denies any history of similar events. The patient reports a spinning sensation as well. Patient has a history of polysubstance abuse. He reportedly has been in rehab for 6 days and used a cocaine and marijuana 5 days prior to admission to rehab. Urine drug screen in the emergency department was positive for cocaine. Past Medical History Past Medical History: Unable to Obtain History of Any Multi-Drug Resistant Organisms: None Reported Past Surgical History: Unable to Obtain Additional Past Surgical History / Comment(s): heart cath with stents, left leg and foot surgery, "hurt back" Past Anesthesia/Blood Transfusion Reactions: No Reported Reaction Past Psychological History: No Psychological Hx Reported Smoking Status: Current some day smoker Past Alcohol Use History: None Reported Past Drug Use History: Opiates Medications and Allergies Home Medications Medication Instructions Recorded Confirmed Type Acetaminophen Tab [Tylenol] 650 mg PO Q4H PRN 05/24/23 05/24/23 History Atorvastatin [Lipitor] 80 mg PO HS 05/24/23 05/24/23 History Calcium Phos/D3/Magnesium/Zinc 1 tab PO TID PRN 05/24/23 05/24/23 History [Saegxso-Ktl-Gxed-Vitamin D3] Cetirizine HCl 10 mg PO DAILY 05/24/23 05/24/23 History Clopidogrel [Plavix] 75 mg PO DAILY 05/24/23 05/24/23 History Ergocalciferol (Vitamin D2) 1,250 mcg PO Q30D 05/24/23 05/24/23 History [Drisdol (50,000 Iu)] Hyoscyamine Sulfate [Levsin] 0.125 mg PO QID PRN 05/24/23 05/24/23 History Isosorbide Mononitrate ER [Imdur] 30 mg PO DAILY 05/24/23 05/24/23 History Loperamide HCl [Imodium A-D] 4 mg PO QID PRN 05/24/23 05/24/23 History Losartan [Cozaar] 25 mg PO DAILY 05/24/23 05/24/23 History Mag Hydrox/Aluminum Hyd/Simeth 30 ml PO Q4H PRN 05/24/23 05/24/23 History [Mylanta Maximum Strength Liq] Multivitamins, Thera [Multivitamin 1 tab PO DAILY 05/24/23 05/24/23 History (formulary)] Naproxen [EC-Naprosyn] 500 mg PO BID PRN 05/24/23 05/24/23 History Nitroglycerin Sl Tabs [Nitrostat] 0.4 mg SUBLINGUAL Q5M PRN 05/24/23 05/24/23 History SUMAtriptan succinate [Imitrex] 50 mg PO BID PRN 05/24/23 05/24/23 History Thiamine [Vitamin B-1] 100 mg PO DAILY 05/24/23 05/24/23 History Tigan 200mg/2ml Injection 200 mg IM Q6H PRN 05/24/23 05/24/23 History buprenorphine HCL [Subutex] 4 mg SL DIRECTED 05/24/23 05/24/23 History carvediloL [Coreg] 6.25 mg PO BID 05/24/23 05/24/23 History cilostazoL [Pletal] 100 mg PO BID 05/24/23 05/24/23 History cloNIDine HCL [Catapres] 0.1 - 0.3 mg PO DIRECTED PRN 05/24/23 05/24/23 Hi story cloNIDine HCL [Catapres] 0.1 mg PO Q4H PRN 05/24/23 05/24/23 History ondansetron HCL [Zofran] 8 mg PO Q6H PRN 05/24/23 05/24/23 History traZODone HCL [Desyrel] 50 - 150 mg PO HS PRN 05/24/23 05/24/23 History Allergies Allergy/AdvReac Type Severity Reaction Status Date / Time No Known Allergies Allergy Verified 05/24/23 16:08 Physical Examination - Vital Signs Vital Signs: Vital Signs Temp Pulse Pulse Resp BP BP Pulse Ox 05/25/23 04:00 78 18 159/89 98 05/25/23 02:04 98.7 F 70 16 154/85 100 05/25/23 02:00 70 05/25/23 01:00 69 18 158/88 99 05/25/23 00:00 68 14 139/71 100 05/24/23 23:56 90 16 139/71 100 05/24/23 23:55 75 16 139/71 98 05/24/23 21:00 69 18 156/93 98 05/24/23 20:00 65 20 147/86 98 05/24/23 19:22 68 16 147/86 99 05/24/23 18:20 99.3 F 75 20 139/95 97 05/24/23 17:18 98.1 F 69 159/100 97 05/24/23 15:43 12 05/24/23 15:35 98.8 F 77 16 166/101 97 Intake and Output 05/24/23 05/25/23 05/25/23 22:59 06:59 14:59 Intake Total 480 Balance 480 Intake: Oral 480 Other: Voiding Method Toilet Urinal # Voids 0 Weight 121.245 kg 121.245 kg General: The patient is reclining in the bed. He is well-nourished. He is well-developed. He is in no acute distress HEENT: Head is atraumatic, normocephalic. Fundus not visualized. There is no scleral icterus. Mucous membranes are moist. Neck: Neck supple without carotid bruits. There is no nuchal rigidity Heart: Regular rate and rhythm without murmur Lungs: Essentially clear to auscultation Extremities: Without edema Neurological examination Mental status: The patient awake, alert and oriented x 3. His speech is clear. There is no dysarthria or aphasia. Cranial nerves: Pupils are equal at 2 mm, round and reactive to light. Visual tobar are full to confrontation. Extraocular movements are intact. There is no nystagmus. Facial sensation is intact. There is no facial asymmetry. Hearing is grossly intact. Uvula and palate are midline. Shoulder shrug is symmetric. Tongue protrudes midline. Motor: Strength is 5/5 left upper and lower extremities and right upper extremity. Right lower extremity is unable to be assessed. There is increased tone in the right lower extremity. Sensation: Intact to light touch throughout. There is no extinction with double simultaneous stimulation. Deep tendon reflexes: 2+/4+ throughout. Plantar responses are flexor bilaterally Coordination: [id number]-ni-[id number] and rapid alternating movements are intact. Iwyf-ba-umbs testing is not assessed at this time. Gait: Not assessed at this time Results - Laboratory Findings CBC and BMP: 05/24/23 15:29 05/25/23 04:38 Abnormal Lab Findings: Abnormal Labs 05/24/23 05/24/23 05/24/23 15:11 15:29 15:29 APTT 20.4 L Sodium 136 L Carbon Dioxide 21 L Creatinine 0.63 L Glucose 113 H Urine Cocaine Screen Detected H 05/25/23 04:38 APTT Sodium Carbon Dioxide Creatinine Glucose 113 H Urine Cocaine Screen - Diagnostic Findings Comments: CT scan of the brain revealed a left basal ganglia, ischemic infarct. Images were personally viewed. I agree with the report. Assessment and Plan Assessment: 1. The patient is a 62-year-old male with history of polysubstance abuse who presents with right-sided weakness and a CT scan consistent with left basal ganglia infarct. Cerebral ischemia is potentially secondary to cocaine use. 2. Polysubstance abuse with urine drug screen positive for cocaine. Per review of literature, cocaine can remain in the urine up to 2 weeks after use, in a heavy user. 3. Plan: 1. Stroke workup includinD echocardiogram, lipid panel, hemoglobin A1c, TSH, PT, OT and speech therapy evaluations 2. Continue with drug rehab 3. Dual antiplatelet therapy for 21 days: Aspirin 81 mg and Plavix 75 mg. Aft er 21 days Plavix may be discontinued 4. High intensity statin therapy should be initiated Time with Patient: Greater than 30 (60 minutes were spent caring for this patient today including, obtaining history, examining the patient, reviewing imaging, chart documentation, labs, placing orders and creating this note)
--- NOTE | 2023-05-25 14:52 | P.PN ---
Subjective Progress Note Date: 05/25/23 Hospital Course: 62-year-old male with history of polysubstance abuse, hypertension presenting from [place] with complaints of right-sided weakness. In the ED, patient was hypertensive to 160s, rest of the vital signs were otherwise unremarkable. Laboratory test unremarkable. Troponin negative. Urine toxicology positive for cocaine. Head CT and cervical spine CT showed possible developing lacunar infarct in the left basal ganglia. CT angiography showed no evidence of dissection or significant stenosis or intracranial high-grade stenosis. Chest x-ray showed no acute process. EKG showed sinus rhythm. Cardiology and neurology were consulted. Subjective: Patient seen and examined at bedside. No acute events overnight. Pertinent positives and negatives as discussed above, a complete review of systems was performed and all other systems are negative. Vitals Signs Reviewed. General: Nontoxic, no distress, appears at stated age Derm: Warm, dry Head: Atraumatic, normocephalic, symmetric Eyes: EOMI, no lid lag, anicteric sclera Mouth: No lip lesion, mucus membranes moist Cardiovascular: S1S2 reg, no murmur Lungs: CTA bilateral, no rhonchi, no rales, no accessory muscle use Abdominal: Soft, nontender to palpation, no guarding, no appreciable organomegaly Ext: Patient does not really want to move his extremities, not cooperative Neuro: CN II-XI grossly intact, no focal neuro deficits Psych: Alert, oriented, appropriate affect Data Reviewed Today: Pertinent Labs: Sodium 137, potassium 3.5, creatinine 0.71, magnesium 1.9, total cholesterol 196, LDL 117 Imaging: Echocardiogram report reviewed, shows moderate to severe LVH with preserved systolic function, mildly enlarged right ventricle, no right to left shunting EKG independently interpreted, shows sinus rhythm with frequent PVCs Assessment and Plan: Active: Acute ischemic CVA, likely left lacunar infarct Acute encephalopathy History of polysubstance abuse Hypertension Aspirin 81 mg daily, Plavix 75 mg daily, atorvastatin 80 mg daily Continue Coreg 12.5 twice daily, hold Imdur and losartan, restart tomorrow, hold for now for permissive hypertension Continues telemetry monitoring, neurochecks EEG pending, neurology consulted Consider MRI brain Abnormal EKG Cardiology note reviewed, EKG changes are likely secondary to drug withdrawal Coreg was increased to 12.5 twice daily DVT ppx: heparin sq Code status: FC Anticipated discharge place: Pending clinical course Anticipated discharge time: Pending clinical course Objective - Vital Signs Vital signs: Vital Signs Temp 98.8 F 05/25/23 08:35 Pulse 75 05/25/23 08:35 Resp 16 05/25/23 08:35 BP 145/85 05/25/23 08:35 Pulse Ox 96 05/25/23 12:55 FiO2 Intake & Output 05/24/23 05/25/23 05/25/23 18:59 06:59 18:59 Intake Total 598 Balance 598 Weight 121.245 kg 121.245 kg Intake: Oral 598 Other: Voiding Method Toilet Toilet Urinal Urinal # Voids 0 - Labs CBC & Chem 7: 05/24/23 15:29 05/25/23 04:38 Labs: Abnormal Lab Results - Last 24 Hours (Table) 05/24/23 05/24/23 05/24/23 Range/Units 15:11 15:29 15:29 APTT 20.4 L (22.0-30.0) sec Sodium 136 L (137-145) mmol/L Carbon Dioxide 21 L (22-30) mmol/L Creatinine 0.63 L (0.66-1.25) mg/dL Glucose 113 H (74-99) mg/dL Urine Cocaine Screen Detected H (NotDetected) 05/25/23 Range/Units 04:38 APTT (22.0-30.0) sec Sodium (137-145) mmol/L Carbon Dioxide (22-30) mmol/L Creatinine (0.66-1.25) mg/dL Glucose 113 H (74-99) mg/dL Urine Cocaine Screen (NotDetected)
[2023-05-25] MEDS: ASPIRIN 81 MG PO SCH (17:19)
[2023-05-25] MEDS: traZODone HCL 50 MG TAB PO PRN (20:57)
[2023-05-25] MEDS: ATORVASTATIN 80 MG TAB PO SCH (20:57)
[2023-05-25] MEDS: cilostazoL 100 MG TAB PO SCH (20:57)
--- NOTE | 2023-05-26 12:19 | P.PN ---
Subjective Progress Note Date: 05/26/23 This is Guevara Jasso NP, I'm dictating on behalf of Dr. Sweeney's H&P and A&P. Patient was interviewed and examined. Patient is a pleasant 62-year-old male who presented to the hospital from drug rehab with confusion, weakness, and CVA rule out with frequent PVCs and EKG changes. This morning the patient reports he is doing well, and feels the medication changes we made yesterday have helped. No further complaints of PVCs, and telemetry appears to be stabilized. GENERAL: Well-appearing, well-nourished and in no acute distress. NECK: Supple without JVD or thyromegaly. LUNGS: Breath sounds clear to auscultation bilaterally. Respiration equal and unlabored. No wheezes, rales or rhonchi. HEART: Regular rate and rhythm without murmurs, rubs or gallops. S1 and S2 heard. EXTREMITIES: Normal range of motion, no edema. No clubbing or cyanosis. Peripheral pulses intact and strong. VITALS: Temp 97.6, pulse 81, respirations 16, blood pressure 103/43, O2 saturation 97% on room air TELEMETRY: Sinus mechanism with occasional PVCs LABS: Sodium 137, potassium 3.5, BUN 15, creatinine 0.71, calcium 8.8, magnesium 1.9 IMPRESSION: 1. Interval EKG changes noted with ST depression in leads III, and V1 through V6 2. History cocaine and heroin use, currently in rehab 3. Hypertension 4. Possible CVA based on CT scan PLAN: Continue carvedilol 12.5 mg twice daily. No further recommendations from a cardiology standpoint. Thank you for allowing us to participate in the care of this patient. Objective - Vital Signs Vital signs: Vital Signs Temp 97.6 F 05/26/23 08:20 Pulse 81 05/26/23 08:20 Resp 16 05/26/23 08:20 BP 103/43 05/26/23 08:20 Pulse Ox 97 05/26/23 08:20 FiO2 Intake & Output 05/25/23 05/26/23 05/26/23 18:59 06:59 18:59 Intake Total 1915 360 Balance 1915 360 Intake: Oral 1915 360 Other: Voiding Method Toilet Toilet Toilet Urinal Urinal Urinal # Voids 1 2 - Labs CBC & Chem 7: 05/24/23 15:29 05/25/23 04:38
--- NOTE | 2023-05-26 13:11 | P.PN ---
Subjective Progress Note Date: 05/26/23 Hospital Course: 62-year-old male with history of polysubstance abuse, hypertension presenting from [place] with complaints of right-sided weakness. In the ED, patient was hypertensive to 160s, rest of the vital signs were otherwise unremarkable. Laboratory test unremarkable. Troponin negative. Urine toxicology positive for cocaine. Head CT and cervical spine CT showed possible developing lacunar infarct in the left basal ganglia. CT angiography showed no evidence of dissection or significant stenosis or intracranial high-grade stenosis. Chest x-ray showed no acute process. EKG showed sinus rhythm. Cardiology and neurology were consulted. Echocardiogram shows moderate to severe LVH with preserved systolic function, malleolus which right ventricle, normal right to left shunting. Subjective: Patient seen and examined at bedside. No acute events overnight. Pertinent positives and negatives as discussed above, a complete review of systems was performed and all other systems are negative. Vitals Signs Reviewed. General: Nontoxic, no distress, appears at stated age Derm: Warm, dry Head: Atraumatic, normocephalic, symmetric Eyes: EOMI, no lid lag, anicteric sclera Mouth: No lip lesion, mucus membranes moist Cardiovascular: S1S2 reg, no murmur Lungs: CTA bilateral, no rhonchi, no rales, no accessory muscle use Abdominal: Soft, nontender to palpation, no guarding, no appreciable organomegaly Ext: No atrophy grossly, strength 3/5 in lower extremities Neuro: CN II-XI grossly intact, no focal neuro deficits Psych: Alert, oriented, appropriate affect Data Reviewed Today: Pertinent Labs: Sodium 137, potassium 3.5, creatinine 0.71, magnesium 1.9, total cholesterol 196, LDL 117 Imaging: No new imaging Assessment and Plan: Active: Acute ischemic CVA, left lacunar infarct Acute encephalopathy, resolved History of polysubstance abuse Hypertension Aspirin 81 mg daily, Plavix 75 mg daily, atorvastatin 80 mg daily Continue Coreg 12.5 twice daily, holding losartan and Imdur Continues telemetry monitoring, neurochecks EEG pending, neurology recommended full stroke workup Consider MRI brain -PT/OT/speech therapy Abnormal EKG Cardiology note reviewed, no new changes Coreg was increased to 12.5 twice daily during this admission DVT ppx: heparin sq Code status: Anticipated discharge place: Pending clinical course Anticipated discharge time: Pending clinical course Objective - Vital Signs Vital signs: Vital Signs Temp 97.6 F 05/26/23 08:20 Pulse 81 05/26/23 08:20 Resp 16 05/26/23 08:20 BP 103/43 05/26/23 08:20 Pulse Ox 97 05/26/23 08:20 FiO2 Intake & Output 05/25/23 05/26/23 05/26/23 18:59 06:59 18:59 Intake Total 1915 360 598 Balance 191 360 598 Intake: Oral 1915 360 598 Other: Voiding Method Toilet Toilet Toilet Urinal Urinal Urinal # Voids 1 2 2 # Bowel Movements 4 2 - Labs CBC & Chem 7: 05/24/23 15:29 05/25/23 04:38
[2023-05-27 09:06] LABS: HGB 12.9 gm/dL (13.0-17.5); MCH 27.2 pg (25.0-35.0); MCHC 32.2 g/dL (31.0-37.0); MCV 84.3 fL (80.0-100.0); Mean Platelet Volume 9.6; Platelet Count 213 k/uL (150-450); RBC 4.75 m/uL (4.30-5.90); RDW 14.2 % (11.5-15.5); WBC 6.3 k/uL (3.8-10.6)
[2023-05-27 09:22] LABS: ALT 21 U/L (4-49); AST 26 U/L (17-59); African American GFR (CKD) >90 (>60 ml/min/1.73 sqM); Albumin 3.5 g/dL (3.5-5.0); Alkaline Phosphatase 63 U/L (38-126); Anion Gap 11 mmol/L; Blood Urea Nitrogen 15 mg/dL (9-20); Calcium 8.7 mg/dL (8.4-10.2); Carbon Dioxide 22 mmol/L (22-30); Chloride 106 mmol/L (98-107); Glucose 155 mg/dL (74-99); Magnesium 1.9 mg/dL (1.6-2.3); Non-African American GFR(CKD) >90 (>60 ml/min/1.73 sqM); Potassium 3.2 mmol/L (3.5-5.1); Sodium 139 mmol/L (137-145); Total Bilirubin 0.5 mg/dL (0.2-1.3); Total Protein 6.3 g/dL (6.3-8.2)
[2023-05-27 09:34] VITALS: TEMP 97.9
[2023-05-27] MEDS ORDERED: hydrOXYzine HCL 25 MG TAB PO PRN (09:42)
[2023-05-27] MEDS: POTASSIUM CHLORIDE ER 20 MEQ TAB.ER PO STA (09:45)
[2023-05-27 12:09] VITALS: BP 113/80; RESP 18
--- NOTE | 2023-05-27 12:31 | P.DS ---
Providers Date of admission: 05/24/23 19:25 Expected date of discharge: 05/27/23 Attending physician: Sarah Restrepo DO Consults: 05/24/23 19:24 Consult Physician Routine Consulting Provider: Carole Archibald Consult Reason/Comments: rule out cva, weakness Do you want consulting provider notified?: Yes 05/25/23 02:22 Consult Physician Routine Consulting Provider: Grover Anne Consult Reason/Comments: lateral ischemic changes on EKG, Trigemny cocaine use Do you want consulting provider notified?: Yes Primary care physician: Stated None Hospital Course: Discharge Diagnosis: Acute ischemic CVA, left lacunar infarct. Patient discharged home and to continue Plavix and Pletal indefinitely and aspirin for an additional 30 days. Patient instructed he will need to follow-up with neurologist after discharge from [facility]. Acute encephalopathy, resolved History of polysubstance abuse, recommend cessation of cocaine use. Hypertension. Losartan and Imdur were discontinued by cardiology cardiology recommending increasing Coreg to 12.5 mg twice daily. Abnormal EKG Hospital Course: Patient is a very pleasant 62-year-old male with history of polysubstance abuse and hypertension. He presented to the emergency department on 05/24/2023 from [facility] with complaints of right-sided weakness. In the ED, patient underwent full evaluation. Vital signs upon arrival show blood pressure 166/101, heart rate 77, respiratory rate 16, temp 98.8 F, and SpO2 of 97% on room air. EKG was completed showing normal sinus rhythm at 80 bpm with T wave inversion in lateral leads aVL and V4 through V6 along with frequent PVCs. CT brain completed negative for acute bleed or mass effect revealing a possible developing lacunar infarct left basal ganglia, marked chronic sinusitis in the right maxillary sinus, and moderate degenerative changes in mid lower cervical spine C3-C7. CTA head negative showing no evidence of intracranial high-grade stenosis or intracranial aneurysm. CTA neck showing no evidence of dissection of the cervical internal carotid arteries or vertebral arteries or any evidence of significant stenosis at the carotid bifurcations. Chest x-ray negative for acute cardiopulmonary process. Labs completed and reviewed. CBC unremarkable. Coagulation profile showing a slightly low PTT of 20.4 otherwise normal findings. BMP showing mild hypocarbia with bicarb of 21 otherwise normal findings. Blood glucose was 113. Liver profile unremarkable. Troponin n egative at less than 0.012. And lipid profile unremarkable. Patient was admitted under services with consultation to neurology. Echocardiogram completed showing preserved EF of 50 to 55% with moderate to severe left ventricular hypertrophy, no right to left shunting reported. Patient was scheduled to undergo an EEG but refused. Patient cleared from cardiology perspective and neurology perspective. Patient is medically stable for discharge home at this time Physical exam: Vital signs reviewed and stable. General: Nontoxic, no distress and appears stated age. Derm: Skin warm and dry, normal coloration for ethnicity. Head: Atraumatic, normocephalic and symmetric. Eyes: EOMs intact, no lid lag, and anicteric sclera Mouth: no lip lesions, mucus membranes moist Cardiovascular: regular rate and rhythm with normal S1S2, no murmur, positive posterior tibial pulses bilaterally, and cap refill < 2 seconds. Lungs: Respirations even, regular, and unlabored on room air. Lungs CTA bilaterally, no rhonchi, no rales, no wheezing, and no accessory muscle usage. Abdominal: soft, nontender to palpation, no guarding, no appreciable organomegaly Ext:. No gross muscle atrophy, no edema, no contractures. Movement equal and intact in upper and lower extremities. Patient reports continued right-sided sensory deficits in right upper extremity only with decreased sensation. Neuro: Speech clear, face symmetrical and CN II-XII grossly intact with no noted focal neuro deficits Psych: Alert and oriented to person, place, time, and situation. Appropriate and pleasant affect. A total of 33 minutes of time were spent preparing this complex discharge summary. Pt was discharged on 05/27/2023 at 11:52 AM. Patient was seen independently by Nurse Practitioner. This document was prepared using [employer] dictation software. Please allow for errors in title insurance examiner while rare they do occur. I reviewed the documentation as provided by the ABEL above, who is the original author of this note. I agree with the documented assessment and plan, with the following changes: none Patient Condition at Discharge: Stable Plan - Discharge Summary Discharge Rx Participant: No New Discharge Prescriptions: New carvediloL [Coreg*] 12.5 mg PO BID-W/MEALS 30 Days #60 tab Aspirin 81 mg PO DAILY 30 Days #30 tab Continue Acetaminophen Tab [Tylenol] 650 mg PO Q4H PRN PRN Reason: Pain Or Fever > 100.5 Hyoscyamine Sulfate [Levsin] 0.125 mg PO QID PRN PRN Reason: cramps/secretions SUMAtriptan succinate [Imitrex] 50 mg PO BID PRN PRN Reason: Migraine Headache cilostazoL [Pletal] 100 mg PO BID ondansetron HCL [Zofran] 8 mg PO Q6H PRN PRN Reason: Nausea traZODone HCL [Desyrel] 50 - 150 mg PO HS PRN PRN Reason: sleep buprenorphine HCL [Subutex] 4 mg SL DIRECTED Tigan 200mg/2ml Injection 200 mg IM Q6H PRN PRN Reason: ACTIVE VOMITING Thiamine [Vitamin B-1] 100 mg PO DAILY Calcium Phos/D3/Magnesium/Zinc [Rvovwjo-Apn-Dedv-Vitamin D3] 1 tab PO TID PRN PRN Reason: CRAMPS Multivitamins, Thera [Multivitamin (formulary)] 1 tab PO DAILY Mag Hydrox/Aluminum Hyd/Simeth [Mylanta Maximum Strength Liq] 30 ml PO Q4H PRN PRN Reason: Gi Upset Loperamide HCl [Imodium A-D] 4 mg PO QID PRN PRN Reason: Diarrhea Ergocalciferol (Vitamin D2) [Drisdol (50,000 Iu)] 1,250 mcg PO Q30D Nitroglycerin Sl Tabs [Nitrostat] 0.4 mg SUBLINGUAL Q5M PRN PRN Reason: Chest Pain Clopidogrel [Plavix] 75 mg PO DAILY Cetirizine HCl 10 mg PO DAILY Atorvastatin [Lipitor] 80 mg PO HS Discontinued cloNIDine HCL [Catapres] 0.1 mg PO Q4H PRN PRN Reason: WITHDRAWL ANXIETY Losartan [Cozaar] 25 mg PO DAILY cloNIDine HCL [Catapres] 0.1 - 0.3 mg PO DIRECTED PRN PRN Reason: BP >160/100 Naproxen [EC-Naprosyn] 500 mg PO BID PRN PRN Reason: Pain Isosorbide Mononitrate ER [Imdur] 30 mg PO DAILY carvediloL [Coreg] 6.25 mg PO BID Discharge Medication List Acetaminophen Tab [Tylenol] 650 mg PO Q4H PRN 05/24/23 [History] Atorvastatin [Lipitor] 80 mg PO HS 05/24/23 [History] Calcium Phos/D3/Magnesium/Zinc [Qxuckfd-Kip-Epew-Vitamin D3] 1 tab PO TID PRN 05/24/23 [History] Cetirizine HCl 10 mg PO DAILY 05/24/23 [History] Clopidogrel [Plavix] 75 mg PO DAILY 05/24/23 [History] Ergocalciferol (Vitamin D2) [Drisdol (50,000 Iu)] 1,250 mcg PO Q30D 05/24/23 [History] Hyoscyamine Sulfate [Levsin] 0.125 mg PO QID PRN 05/24/23 [History] Loperamide HCl [Imodium A-D] 4 mg PO QID PRN 05/24/23 [History] Mag Hydrox/Aluminum Hyd/Simeth [Mylanta Maximum Strength Liq] 30 ml PO Q4H PRN 05/24/23 [History] Multivitamins, Thera [Multivitamin (formulary)] 1 tab PO DAILY 05/24/23 [History] Nitroglycerin Sl Tabs [Nitrostat] 0.4 mg SUBLINGUAL Q5M PRN 05/24/23 [History] SUMAtriptan succinate [Imitrex] 50 mg PO BID PRN 05/24/23 [History] Thiamine [Vitamin B-1] 100 mg PO DAILY 05/24/23 [History] Tigan 200mg/2ml Injection 200 mg IM Q6H PRN 05/24/23 [History] buprenorphine HCL [Subutex] 4 mg SL DIRECTED 05/24/23 [History] cilostazoL [Pletal] 100 mg PO BID 05/24/23 [History] ondansetron HCL [Zofran] 8 mg PO Q6H PRN 05/24/23 [History] traZODone HCL [Desyrel] 50 - 150 mg PO HS PRN 05/24/23 [History] Aspirin 81 mg PO DAILY 30 Days #30 tab 05/27/23 [Rx] carvediloL [Coreg*] 12.5 mg PO BID-W/MEALS 30 Days #60 tab 05/27/23 [Rx] Follow up Appointment(s)/Referral(s): Garry Mullen MD [Medical Doctor] - 2 Weeks (please call and make appointment ) Patient Instructions/Handouts: Ischemic Stroke (DC) Activity/Diet/Wound Care/Special Instructions: Activity: As tolerated. Take breaks as needed. Diet: Heart healthy and carb consistent diet. Avoid salts, or foods with hidden salts such as canned or boxed foods and frozen dinners. Extra salt makes your heart work harder and traps the fluid in your body for longer. Special Instructions: Take all of your medications as directed and remember to keep all of your doctor's appointments and follow-up as needed. Highly recommend stopping cocaine use. Is important to follow-up with your PCP and with your neurologist after discharge from [facility]. Thank you for allowing us to participate in your care, it was truly a pleasure having you for our patient!!! Discharge Disposition: HOME SELF-CARE
--- NOTE | 2023-05-27 14:59 | P.PN ---
Subjective Progress Note Date: 05/27/23 Patient is a pleasant 62-year-old male who presented to the hospital from drug rehab with confusion, weakness, and CVA rule out with frequent PVCs and EKG changes. This morning the patient reports he is doing well, and feels the medication changes we made yesterday have helped. No further complaints of PVCs, and telemetry appears to be stabilized. VITALS: Temp 97.6, pulse 81, respirations 16, blood pressure 103/43, O2 saturation 97% on room air TELEMETRY: Sinus mechanism with occasional PVCs LABS: Sodium 137, potassium 3.5, BUN 15, creatinine 0.71, calcium 8.8, magnesium 1.9 05/27 During this hospitalization, patient had Coreg increased above 0.5 mg twice daily. While he sleeping his heart rate is going to 43-46 range. During the day he is having less palpitations. He does complain of feeling weak but is vague what this means. Blood pressure 113/80, heart rate 77, afebrile, pulse ox 99% on room air. Repeat blood work reveals WBC 6.3, hemoglobin 12.9. Sodium 139, potassium 3.2, creatinine 0.77. Liver function test are normal. Potassium has been replaced. GENERAL: Well-appearing, well-nourished and in no acute distress. NECK: Supple without JVD or thyromegaly. LUNGS: Breath sounds clear to auscultation bilaterally. Respiration equal and unlabored. No wheezes, rales or rhonchi. HEART: Regular rate and rhythm without murmurs, rubs or gallops. S1 and S2 heard. EXTREMITIES: Normal range of motion, no edema. No clubbing or cyanosis. Peripheral pulses intact and strong. IMPRESSION: 1. Interval EKG changes noted with ST depression in leads III, and V1 through V6 2. History cocaine and heroin use, currently in rehab 3. Hypertension 4. Possible CVA based on CT scan PLAN: Continue carvedilol 12.5 mg twice daily. No further recommendations from a cardiology standpoint. Cardiology will sign off this case and follow on an as-needed basis. Please reconsult for any new concerns. Nurse practitioner note has been reviewed, I agree with documented findings and plan of care. Patient was seen and examined. Objective - Vital Signs Vital signs: Vital Signs Temp 97.9 F 05/27/23 09:01 Pulse 77 05/27/23 11:37 Resp 18 05/27/23 11:37 BP 113/80 05/27/23 11:37 Pulse Ox 99 05/27/23 11:37 FiO2 Intake & Output 05/26/23 05/27/23 05/27/23 18:59 06:59 18:59 Intake Total 834 118 Balance 834 118 Intake: Oral 834 118 Other: Voiding Method Toilet Toilet Toilet Urinal Urinal Urinal # Voids 2 1 # Bowel Movements 2 - Labs CBC & Chem 7: 05/27/23 08:21 05/27/23 08:21 Labs: Abnormal Lab Results - Last 24 Hours (Table) 05/27/23 05/27/23 Range/Units 08:21 08:21 Hgb 12.9 L (13.0-17.5) gm/dL Potassium 3.2 L (3.5-5.1) mmol/L Glucose 155 H (74-99) mg/dL
[2023-05-27 15:11] VITALS: PULSE 78
[2023-05-27] MEDS ORDERED: carvediloL 12.5 MG TAB PO SCH (17:30)
[2023-05-27] MEDS ORDERED: carvediloL 6.25 MG TAB PO SCH (17:30)
== END 2023-05-27 16:51 | disposition home or self-care (01) | DRG 45 ==
LOC: EC 15:04 → 3SCARD 19:25
PROVIDERS: ADMIT Internal Medicine; ATTEND Internal Medicine
DX: I63.81 Other cerebral infarction due to occlusion or stenosis of small artery (principal); R29.810 Facial weakness; R29.701 NIHSS score 1; Z11.52 Encounter for screening for COVID-19; F17.200 Nicotine dependence, unspecified, uncomplicated; M54.50 Low back pain, unspecified; I10 Essential (primary) hypertension; F11.13 Opioid abuse with withdrawal; I49.3 Ventricular premature depolarization; G89.29 Other chronic pain; F14.13 Cocaine abuse, unspecified with withdrawal; F19.139 Other psychoactive substance abuse with withdrawal, unspecified; G93.40 Encephalopathy, unspecified; Z53.29 Procedure and treatment not carried out because of patient's decision for other reasons; Z71.51 Drug abuse counseling and surveillance of drug abuser; Z79.02 Long term (current) use of antithrombotics/antiplatelets; Z79.899 Other long term (current) drug therapy; Z79.82 Long term (current) use of aspirin
CPT/HCPCS: 36415; 70450; 70496; 70498; 71046; 72125; 80048; 80053; 80061; 80306; 80320; 81003; 82140; 83605; 83735; 84484; 85025; 85027; 85610; 85730; 87636; 93005; 93306; 96361; 96374; 96375; 99291